=== PATIENT | female | born 1940 | race Caucasian/White ===

== ENCOUNTER 2024-06-18 07:01 | Day surgery (SDC) | payer MEDICARE, BC ==
[2024-06-17 11:08] LABS: BASOPHILS # (AUTO) 0.1 X10'3 (0-0.2); BASOPHILS % (AUTO) 0.7 % (0-1); EOSINOPHILS # (AUTO) 0.3 X10'3 (0-0.9); EOSINOPHILS % (AUTO) 2.7 % (0-6); HEMATOCRIT 41.6 % (35.0-45.0); HEMOGLOBIN 13.9 g/dl (12.0-16.0); LYMPHOCYTES # (AUTO) 5.2 X10'3 (1.1-4.8); LYMPHOCYTES % (AUTO) 46.1 % (21-51); MEAN CORPUSCULAR HEMOGLOBIN 29.7 PG (27.0-31.0); MEAN CORPUSCULAR HGB CONC 33.3 g/dL (33.0-36.5); MEAN PLATELET VOLUME 11.9 FL (7.4-10.4); MONOCYTES % (AUTO) 8.5 % (2-12); NEUTROPHILS # (AUTO) 4.7 X10'3 (1.8-7.7); PLATELET COUNT 164 X10'3 (140-440); RED BLOOD COUNT 4.68 X10'6 (4.20-5.60); RED CELL DISTRIBUTION WIDTH 14.2 % (11.5-14.5); WHITE BLOOD COUNT 11.2 X10'3 (4.5-11.0)
[2024-06-17 11:24] LABS: ALBUMIN 3.7 G/DL (3.4-5.0); ANION GAP 9 (8-16); BLOOD UREA NITROGEN 18 MG/DL (7-18); BUN/CREATININE RATIO 17.8 (10.0-20.0); CALCIUM 9.1 MG/DL (8.5-10.1); CHLORIDE 106 MMOL/L (99-107); CREATININE 1.01 MG/DL (0.40-0.90); GLUCOSE 128 MG/DL (70-104); INR 1.1 INR; POTASSIUM 4.3 MMOL/L (3.5-5.1); PROTHROMBIN TIME 11.4 SECONDS (9.0-12.0); SODIUM 142 MMOL/L (135-145); TOTAL CARBON DIOXIDE 26.9 MMOL/L (24-32); eGFR 52 ML/MIN
[~2024-06-18] VITALS: Ht 163.8 cm; Wt 75.3 kg
[2024-06-18] MEDS ORDERED: amiodarone 150mg/dext, iso-os 100 ML IV ONE (07:30)
[2024-06-18] MEDS ORDERED: LORazepam 0.5 MG tablet PO ONE (07:30)
[2024-06-18] MEDS ORDERED: normal saline 1000ml 1,000 ML IV SCH (07:30)
[2024-06-18] MEDS ORDERED: MIDAZolam 1mg/ml 10ml vial IV ONE (07:30)
[2024-06-18] MEDS ORDERED: diphenhydrAMINE 25mg capsule PO ONE (07:30)
[2024-06-18] MEDS ORDERED: morphine 10mg/ml inj. IV ONE (07:30)
[2024-06-18] MEDS ORDERED: atropine 0.1mg/ml 10ml syringe IV ONE (07:30)
[2024-06-18] MEDS ORDERED: SOTA80TA73 PO (08:23)
== END 2024-06-18 08:30 | disposition home or self-care (01) ==
LOC: SSTAY O 07:01
PROVIDERS: ATTEND Internal Medicine Cardiovascular Disease
DX: I48.0 Paroxysmal atrial fibrillation (principal); Z53.8 Procedure and treatment not carried out for other reasons; I10 Essential (primary) hypertension; E78.5 Hyperlipidemia, unspecified; E03.9 Hypothyroidism, unspecified; G47.30 Sleep apnea, unspecified; M81.0 Age-related osteoporosis without current pathological fracture; I08.1 Rheumatic disorders of both mitral and tricuspid valves; Z79.01 Long term (current) use of anticoagulants; Z79.82 Long term (current) use of aspirin; Z79.890 Hormone replacement therapy; Z79.899 Other long term (current) drug therapy; Z98.51 Tubal ligation status; Z98.890 Other specified postprocedural states; Z88.0 Allergy status to penicillin; Z81.8 Family history of other mental and behavioral disorders
CPT/HCPCS: 36415; 80048; 85025; 85610; 93005; J7030

== ENCOUNTER 2024-09-25 11:09 | Outpatient (CLI) | payer MEDICARE, BC ==
[~2024-09-25 11:09] MED LIST: SOTA80TA73 PO
== END 2024-09-25 23:59 | disposition home or self-care (01) ==
LOC: RAD 11:09
PROVIDERS: ATTEND Registered Nurse
DX: R76.11 Nonspecific reaction to tuberculin skin test without active tuberculosis (principal)
CPT/HCPCS: 71046